=== PATIENT | female | born 1960 | race Caucasian/White ===

== ENCOUNTER → 2018-04-05 | Outpatient (CLI) | payer BC ==
[~2018-04-05] MED LIST: CALCIUM 1,0001 EACH; DHEA; Endometrin100 MG; METF500; SUPER-D3+ SOFT1 EACH; Super B Comple150 MG
[2018-04-05 19:34] LABS: Candida species (DNA Probe) Negative (NEGATIVE); G. vaginalis (DNA Probe) Positive (NEGATIVE); T. vaginalis (DNA Probe) Negative (NEGATIVE)
== END ==
LOC: LAB 13:45 → LAB SHORT 13:45
PROVIDERS: Nurse Practitioner
DX: N77.1 Vaginitis, vulvitis and vulvovaginitis in diseases classified elsewhere (principal)
CPT/HCPCS: 87480; 87510; 87660

== ENCOUNTER 2022-06-07 07:29 | Day surgery (SDC) | payer BC ==
[~2022-06-07] VITALS: Ht 160 cm; Wt 65.3 kg
[2022-06-07] MEDS ORDERED: DHEA (08:16)
[2022-06-07] MEDS ORDERED: VITAMIN D31000 UNI1 (08:16)
[2022-06-07 10:36] VITALS: BP 98/60
== END 2022-06-07 10:06 | disposition home or self-care (01) ==
LOC: ORSCSDS 07:29
PROVIDERS: Internal Medicine Gastroenterology
PROC: 0DJD8ZZ Inspection of Lower Intestinal Tract, Via Natural or Artificial Opening Endoscopic (ICD-10-PCS; principal; 2022-06-07 08:45)
DX: Z12.11 Encounter for screening for malignant neoplasm of colon (principal)
CPT/HCPCS: J2704; J7120